=== PATIENT | male | born 2000 | race African-American/Black ===

== ENCOUNTER 2025-03-28 22:52 | Emergency (ER) | payer SELFPAY ==
[~2025-03-28] VITALS: Ht 188 cm; Wt 74.0 kg
[2025-03-28 22:58] VITALS: TEMP 36.7; O2SAT 99
[2025-03-28] MEDS: LEVETIRACETAM 1000MG PREMIX 100 ML IV ONE (23:28)
[2025-03-29 01:45] VITALS: BP 107/54; PULSE 64; RESP 22; O2SAT 98
== END 2025-03-29 02:49 | disposition home or self-care (01) ==
LOC: ER 22:52
DX: R56.9 Unspecified convulsions (principal)
CPT/HCPCS: 93005; 96365; 99284; J1953; Z7610; A4606